=== PATIENT | female | born 1970 | race Two or more races ===

== ENCOUNTER 2024-11-21 21:16 | Emergency (ER) | payer OTHER ==
[~2024-11-21] VITALS: Ht 152.4 cm; Wt 82.0 kg
--- NOTE | 2024-11-21 21:52 | ED.PDOC ---
Psychiatric HPI Comments 54 y.o female BIB relative, presents to the ED for an evaluation of an overdose. Relative reports patient's niece gave her a bag of THC gummies to take to relax and patient accidently ate the whole bag. Patient consumed 5,000mg of THC and developed nausea, vomiting and is hard to arouse. Patient is responsive to painful stimuli and has clear airways. relative does not think patient took gummies in intent to harm herself. Chief Complaint: Overdose Time Seen by MD: 21:28 Reviewed Notes: Nurses Notes, Medications, Allergies Information Source: Relative Mode of Arrival: EMS Severity of Pain: None Severity of Mental Status: None Severity of Symptoms: Moderate Timing: Hours Duration: Since onset Presents with: None Ingestion: Accidental, Multiple Circumstance: Altered Mental Status Stressors: None History of: None Associated signs and symptoms: Other Past Medical History PAST MEDICAL HISTORY: Arthritis Surgical History: Unknown CARDIOLOGY CONSULTANT History: Unknown Family History Family History: Unknown Social History Smoker: Non-Smoker Alcohol: Denies ETOH Use Drugs: Denies Drug Use Lives In: Home Unable to Obtain due to: Altered Mental Status Physical Exam General Appearance: Other (difficult to arouse but does respond to painful stimuli ) HEENT: Normal ENT Inspection, Pharynx Normal, TMs Normal Neck: Full Range of Motion, Non-Tender, Normal, Normal Inspection Respiratory: Chest Non-Tender, Lungs Clear, No Accessory Muscle Use, No Respiratory Distress, Normal Breath Sounds Cardiovascular: No Edema, No JVD, No Murmur, No Gallop, Normal Peripheral Pulses, Regular Rate/Rhythm Breast Exam: Deferred Gastrointestinal: No Organomegaly, Non Tender, No Pulsatile Mass, Normal Bowel Sounds, Soft Genitalia: Deferred Pelvic: Deferred Rectal: Deferred Extremities: No calf tenderness, Normal capillary refill, Normal inspection, Normal range of motion, Non-tender, No pedal edema Musculoskeletal : Apperance: Normal Neurologic: Alert, automobile insurance claim examiner II-XII nml as Tested, No Motor Deficits, Normal Affect, Normal Mood, No Sensory Deficits Cerebellar Function: Normal Reflexes: Normal Skin: Dry, Normal Color, Warm Lymphatic: No Adenopathy Was a procedure done? Was a procedure done?: No Psych Differential Dx OD Differential Dx: Accidental X-Ray, Labs, Meds, VS Vital Signs Date Time Temp Pulse Resp B/P (MAP) Pulse Ox O2 Delivery O2 Flow Rate FiO2 11/22/24 00:00 96 15 132/85 (101) 98 11/21/24 22:37 113 20 122/43 (69) 96 11/21/24 22:00 Nasal Cannula* 2 28 11/21/24 21:16 98.4 140 20 134/64 (87) 94 98.4 Current Medications Medications (Trade) Dose Ordered Sig/Maureen Route Start Time Stop Time Status Last Admin Sodium Chloride 1,000 ml @ 1,000 mls/hr Q1H ONCE IV 11/21/24 22:00 11/21/24 22:59 DC 11/21/24 22:28 Prochlorperazine Edisylate (Compazine Inj) 5 mg ONCE ONCE IV 11/21/24 22:30 11/21/24 22:31 DC 11/21/24 22:42 Haloperidol Lactate (Haldol) 10 mg ONCE ONCE IM 11/22/24 00:30 11/22/24 00:31 DC 11/22/24 01:00 X-Ray, Labs, Meds, VS Comment Imaging: X-rays and CT scans were reviewed and interpreted by this provider, imaging shows no fractures and no pathological disease. Pending radiology review. Laboratory: Labs reviewed and interpreted by this provider. No significant abnormalities noted. Patient has prior medical visits reviewed. Med reconciliation performed Vital signs reviewed Time of 1ST Reevaluation: 21:49 Reevaluation 1ST: Unchanged Time of 2ND Reevaluation: 02:22 Reevaluation 2ND: Improved (Patient making slow improvements, able to be arouse and was requesting ice chips. Patient was given Haldol 10 mg, vomiting has stopped, patient is still mildly lethargic.) Patient Education/Counseling: Diagnosis, Treatment, Need For Follow Up (Follow up with PCP in the next 2-3 days. Return to emergency department if symptoms worsen.), Other (patient is altered ) Family Education/Counseling: Diagnosis, Treatment, Prognosis Departure 1 Departure Time of Disposition: 02:23 Impression: Primary Impression: Cannabis abuse Disposition: 01 HOME / SELF CARE / HOMELESS Condition: Fair Discharged With: Self Critical Care Note Critical Care Time?: No Stability Stability form required: No I personally scribed for ARTURO LO ([facility]) on 11/21/24 at 21:52. Electronically submitted by Inna Mcmullen ([facility]). ARTURO LO 21, 2025 21:52
[2024-11-21] MEDS: SODIUM CHLORIDE 0.9% 1,000 ML IV ONE (22:28)
[2024-11-21] MEDS: PROCHLORPERAZINE EDISYLATE 5 MG/ML 2ML VIAL IV ONE (22:42)
[2024-11-22] MEDS: HALOPERIDOL LACTATE 5 MG/ML INJ VIAL IM ONE (01:00)
[2024-11-22 08:26] VITALS: BP 119/62; PULSE 95; RESP 18; TEMP 98.4; O2SAT 99
== END 2024-11-22 09:58 | disposition home or self-care (01) ==
LOC: ER 21:16
DX: F12.10 Cannabis abuse, uncomplicated (principal); M19.90 Unspecified osteoarthritis, unspecified site; Z79.899 Other long term (current) drug therapy
CPT/HCPCS: 96361; 96372; 96374; 99285; J0780; J1630; J7030